=== PATIENT | male | born 2000 | race Caucasian/White ===

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

== ENCOUNTER 2021-08-30 23:10 | Emergency (ER) | payer BC ==
[2021-08-30 23:25] VITALS: BP 145/84; PULSE 112
[2021-08-31 00:01] LABS: CORONAVIRUS COVID-19 NAA NEGATIVE (NEGATIVE)
--- NOTE | 2021-08-31 00:14 | EDM.PDOC ---
ED HPI GENERAL MEDICAL PROBLEM - General Chief Complaint: General Stated Complaint: FEVER/BODY ACHES/COUGH Time Seen by Provider: 08/30/21 23:20 Source of Information: Reports: Patient History Limitations: Reports: No Limitations - History of Present Illness INITIAL COMMENTS - FREE TEXT/NARRATIVE: The patient presents with body aches, fever and cough. This all started today. His girlfriend was diagnosed with influenza A recently. The patient has no history of asthma. When he was a child up to 13 years old he would use an inhaler at times. He was never formally diagnosed with asthma. He does not smoke. He has mild sore throat. He has no ear pain. He has congestion in his chest. Onset: Gradual Duration: Hour(s): Location: Reports: Generalized Quality: Reports: Ache Severity: Moderate Improves with: Reports: None Worsens with: Reports: None Associated Symptoms: Reports: Cough, Fever/Chills. Denies: Chest Pain, Nausea/Vomiting, Shortness of Breath Generalized Pain Score (Numeric/FACES): 6 - Related Data Allergies Allergy/AdvReac Type Severity Reaction Status Date / Time No Known Allergies Allergy Verified 08/30/21 23:26 Home Meds: Home Meds Oseltamivir [Tamiflu] 75 mg PO BID #10 cap 08/31/21 [Rx] Past Medical History Respiratory History: Reports: Asthma - Past Surgical History HEENT Surgical History: Reports: Adenoidectomy, Tonsillectomy Social & Family History - Tobacco Use Tobacco Use Status *Q: Never Tobacco User Second Hand Smoke Exposure: No - Caffeine Use Caffeine Use: Reports: Coffee, Energy Drinks, Soda, Tea - Recreational Drug Use Recreational Drug Use: No ED ROS GENERAL - Review of Systems Review Of Systems: See Below Constitutional: Reports: Fever, Chills, Malaise, Weakness, Fatigue HEENT: Reports: No Symptoms Respiratory: Reports: Cough. Denies: Shortness of Breath Cardiovascular: Reports: No Symptoms Endocrine: Reports: No Symptoms GI/Abdominal: Reports: No Symptoms : Reports: No Symptoms Musculoskeletal: Reports: Muscle Pain Skin: Reports: No Symptoms ED EXAM, GENERAL - Physical Exam Exam: See Below Exam Limited By: No Limitations General Appearance: Alert, No Apparent Distress Ears: Normal External Exam Nose: Normal Inspection Throat/Mouth: Normal Inspection Head: Atraumatic, Normocephalic Neck: Normal Inspection, Supple, Non-Tender Respiratory/Chest: No Respiratory Distress, Lungs Clear, Normal Breath Sounds Cardiovascular: Regular Rate, Rhythm, No Edema, No Murmur, No Rub GI/Abdominal: Soft, Non-Tender, No Organomegaly Back Exam: Normal Inspection Extremities: Normal Inspection Neurological: Alert, Oriented, No Motor/Sensory Deficits Course - Vital Signs Last Recorded V/S: Last Vital Signs Temp 97.7 F 08/30/21 23:24 Pulse 112 H 08/30/21 23:24 Resp 18 08/30/21 23:24 BP 145/84 H 08/30/21 23:24 Pulse Ox 96 08/30/21 23:24 - Orders/Labs/Meds Orders: Active Orders 24 hr Category Date Time Status Oseltamivir [Tamiflu] Med 08/31/21 00:41 Once 75 mg PO ONETIME ONE Labs: Laboratory Tests 08/30/21 Range/Units 23:20 Influenza Type A RNA Positive H (NEGATIVE) Influenza Type B RNA Negative (NEGATIVE) SARS-CoV-2 RNA ([place]) Negative (NEGATIVE) - Re-Assessments/Exams Free Text/Narrative Re-Assessment/Exam: 08/31/21 00:14 I ordered COVID and influenza. COVID is negative. He is influenza A positive. Departure - Departure Time of Disposition: 00:30 Disposition: Home, Self-Care 01 Condition: Good Clinical Impression: Influenza A - Discharge Information *PRESCRIPTION DRUG MONITORING PROGRAM REVIEWED*: Not Applicable *COPY OF PRESCRIPTION DRUG MONITORING REPORT IN PATIENT YONY: Not Applicable Prescriptions: Oseltamivir [Tamiflu] 75 mg PO BID #10 cap Instructions: Influenza, Adult Referrals: PCP,None [Primary Care Provider] - Forms: ED Department Discharge, ED Return to Work/School Form Additional Instructions: Drink plenty of fluids. Take tylenol or motrin for any fever or pain. Take the tamiflu 2 times per day for 5 days. Please return if you are worse. Sepsis Event Note (ED) - Evaluation Sepsis Screening Result: No Definite Risk - Focused Exam Vital Signs: Vital Signs Temp Pulse Resp BP Pulse Ox 08/30/21 23:24 97.7 F 112 H 18 145/84 H 96 - My Orders Last 24 Hours: My Active Orders 08/31/21 00:41 Oseltamivir [Tamiflu] 75 mg PO ONETIME ONE - Assessment/Plan Last 24 Hours: My Active Orders 08/31/21 00:41 Oseltamivir [Tamiflu] 75 mg PO ONETIME ONE
[2021-08-31] MEDS ORDERED: Oseltamivir 75 MG Cap PO ONE (00:41)
== END 2021-08-31 00:43 | disposition home or self-care (01) ==
LOC: JD.ED 23:10
DX: J10.1 Influenza due to other identified influenza virus with other respiratory manifestations (principal); Z20.822 Contact with and (suspected) exposure to COVID-19
CPT/HCPCS: 0240U; 99283; A9270

== ENCOUNTER 2024-01-12 01:21 | Emergency (ER) | payer BC ==
[2024-01-12] MEDS: Diphtheria,Pertussis(Acell),Tetanus Vaccine 0.5 ML Syringe IM ONE (02:15)
[2024-01-12] MEDS: Lidocaine 1% 10 ML MDV INJECT ONE (02:17)
[2024-01-12] MEDS: Lidocaine 1% 5 ML VIAL INJECT ONE (03:40)
[2024-01-12 03:51] VITALS: BP 159/96; PULSE 99
== END 2024-01-12 04:12 | disposition home or self-care (01) ==
LOC: JD.ED 01:21
DX: S02.40FA Zygomatic fracture, left side, initial encounter for closed fracture (principal); S81.011A Laceration without foreign body, right knee, initial encounter; Z23 Encounter for immunization; J45.909 Unspecified asthma, uncomplicated; Z79.899 Other long term (current) drug therapy; Y04.2XXA Assault by strike against or bumped into by another person, initial encounter
CPT/HCPCS: 12001; 70486; 70486-26; 90471; 90715; 99283; 99284-25; J3490